=== PATIENT | male | born 1990 | race Caucasian/White ===

== ENCOUNTER 2019-10-16 19:26 | Emergency (ER) | payer SELFPAY ==
[~2019-10-16] VITALS: Ht 172.7 cm; Wt 72.6 kg
[2019-10-16 19:31] VITALS: Ht 172.7 cm; Wt 72.6 kg
[2019-10-16 23:08] LABS: CALCIUM 7.8 mg/dL (8.5-10.1); CARBON DIOXIDE 26.3 mmol/L (21-32); CHLORIDE SERUM 108 mmol/L (98-107); CREATININE SERUM 0.6 mg/dL (0.7-1.3); GFR1 > 60 mL/min; GLUCOSE SERUM 96 mg/dL (74-106); POTASSIUM SERUM 3.3 mmol/L (3.5-5.1); SODIUM SERUM 143 mmol/L (136-145)
[2019-10-16 23:12] LABS: AMPHETAMINE QUAL UR POSITIVE (See below)
[2019-10-16 23:15] LABS: ALBUMIN 3.5 g/dL (3.4-5.0); ALKALINE PHOSPHATASE 74 U/L (46-116); ALT/SGPT 26 U/L (16-63); AST/SGOT 16 U/L (15-37); BILIRUBIN TOTAL 0.47 mg/dL (0.20-1.00)
[2019-10-16 23:16] LABS: BASOPHIL % 0.6 % (0-2); PLATELET COUNT 157 x10^3mcL (130-400)
[2019-10-16 23:22] LABS: CHOLESTEROL 107 mg/dL (<200)
[2019-10-17 08:47] VITALS: BP 110/65
== END 2019-10-17 08:47 | disposition home or self-care (01) ==
LOC: ED 19:26
PROVIDERS: Specialist
DX: R41.82 Altered mental status, unspecified (principal); E86.0 Dehydration; F19.10 Other psychoactive substance abuse, uncomplicated
CPT/HCPCS: 82962; G0480; J1630; J2060; J3411; J3475; J3490; J7030; Q0092